=== PATIENT | female | born 1990 | race African-American/Black ===

== ENCOUNTER 2017-06-08 13:23 | Emergency (ER) | payer OTHER ==
[~2017-06-08] VITALS: Ht 160 cm; Wt 116.4 kg
[2017-06-08 14:57] LABS: INFLUENZA TYPE B NEGATIVE FOR TYPE B (NEGATIVE)
[2017-06-08] MEDS ORDERED: ALBUTEROL SULFATE 5 MG/ML 20 ML NEB SOLN [BULK] NEB ONE (17:00)
[2017-06-08] MEDS ORDERED: ACETAMINOPHEN 500 MG TABLET PO ONE (17:00)
[2017-06-08] MEDS ORDERED: OSELTAMIVIR PHOSPHATE 75 MG CAPSULE PO ONE (18:45)
[2017-06-08 18:54] VITALS: BP 148/86
== END 2017-06-08 18:57 | disposition home or self-care (01) ==
LOC: EMS 13:23
DX: J11.1 Influenza due to unidentified influenza virus with other respiratory manifestations (principal); J40 Bronchitis, not specified as acute or chronic
CPT/HCPCS: 87430; 87804; 94640; 99284; J7611

== ENCOUNTER 2019-06-28 19:48 | Emergency (ER) | payer OTHER ==
[~2019-06-28] VITALS: Ht 160 cm; Wt 106.8 kg
[2019-06-28 20:44] VITALS: BP 148/88
== END 2019-06-28 21:30 | disposition home or self-care (01) ==
LOC: EMS 19:50
DX: J01.90 Acute sinusitis, unspecified (principal); H66.93 Otitis media, unspecified, bilateral
CPT/HCPCS: 87430